=== PATIENT | male | born 1965 | race Caucasian/White ===

== ENCOUNTER 2017-09-28 19:09 | Emergency (ER) | payer OTHER, SELFPAY ==
[2017-09-28 19:09] VITALS: BP 179/95; PULSE 66; RESP 14; TEMP 36.9; O2SAT 99; BMI 25.7
[2017-09-28 19:20] VITALS: O2SAT 97
--- NOTE | 2017-09-28 19:21 | RAD_ITS ---
STUDY: X-RAY CHEST REASON FOR EXAM: Male, 52 years old. Chest pain TECHNIQUE: Frontal and lateral views of the chest COMPARISON: None. FINDINGS: The lungs are clear. There are no pleural effusions. There is no pneumothorax. The heart is normal in size. The visualized osseous structures are within normal limits. RAD/Chest PA and Lateral IMPRESSION: No acute thoracic pathology. Electronically Signed: [place], at 20:33 EDT Tel , Service support ,
--- NOTE | 2017-09-28 19:21 | EKG12_ITS ---
Test Reason : CP Blood Pressure : / mmHG Vent. Rate : 063 BPM Atrial Rate : 063 BPM P-R Int : 144 ms QRS Dur : 114 ms QT Int : 406 ms P-R-T Axes : 017 085 024 degrees QTc Int : 415 ms Normal sinus rhythm Normal ECG Confirmed by VIVIEN GREWAL, VIET ([id number]), science editor YADI SHIN ([id number] on 10/01/2017 3:55:47 PM Referred By: JERSON Confirmed By:VIET PUGA MD
--- NOTE | 2017-09-28 19:23 | ED.DCSUM_ITS ---
- ER Visit Summary Date of Service: 09/28/17 Chief Complaint: [] Chest pain History of Present Illness: The patient is a 52 M [] complaint of chest pain started 45 minutes ago. Was walking around his house when it came on. Continuous cramping sensation left parasternal. No radiation. Current severity is moderate. Took an aspirin and a dose of his metoprolol at home. No previous IL. Negative heart cath 6 years ago. He does have mitral valve prolapse. He had absolutely no blockages per patient. This was done at [facility]. Denies any cardiovascular PE or dissection risk factors. Physical Examination: [] Vital signs reviewed General: Well-nourished well-developed Head: Normocephalic atraumatic Eyes: Pupils equal round and reactive to light extraocular movements intact ENT: TMs clear no hemotympanum no trauma Neck: Nontender full range of motion Cardiovascular: Regular rate rhythm no murmurs normal S1-S2 Respiratory: No distress clear to auscultation bilaterally chest nontender Abdomen: Soft nontender nondistended normal bowel sounds no masses Back: Nontender no CVA tenderness Extremities: Nontender active range of motion ?4 extremities no trauma Skin: Normal color no trauma Neuro alert oriented cranial nerves II through XII intact normal strength sensation reflexes Test Results: [] Emergency Department Course and Treatment: [] EKG shows sinus at 63 without ischemia. Lab work chest x-ray obtained. Patient took aspirin at home. Given IV morphine. Reevaluation he feels much better resting comfortably. CBC normal. Chemistries normal except chloride 108 BUN 19 calcium 8.3 troponin less than 0.1. Chest x-ray shows nothing acute. Patient low risk heart score of 2 pertinent negative and a GODFREY risk score of 0 out of 7. I do not think this is cardiac. He stated he has been missing his metoprolol which could be exacerbating his mitral valve prolapse. This could be costochondritis. He had a negative heart cath completely 6 years ago [facility]. I feel he can follow- up. I do not think he has a PE or dissection. He has no tachycardia and no hypoxia. I did offer the patient a delta troponin and EKG and he does not think he needs this and refused. I think this is reasonable given his negative heart cath in the past Treatment Plan: [] Disposition: [] Impression: [] Chest pain This note was generated with Dragon dictation software. It may contain incorrect words, spelling, and punctuation that were not noted in review of the chart prior to signing ED Disposition - Plan for ED Patient: Disposition: Home or Assisted Living Chief Complaint: Chest Pain Instructions: ED Chest Pain NonCardiac Referrals: Ronny Lindsay MD [Primary Care Provider] -
[2017-09-28 19:35] LABS: Absolute Lymphocyte Count 2.75 X10^3/ul (0.83-4.51); Basophil# 0.02 X10^3/uL; Basophil% 0.3 % (0-1); Eosinophil# 0.14 X10^3/uL; Eosinophils% 2.1 % (0-5); Hematocrit 45.3 % (40-54); Hemoglobin 16.2 g/dl (13.0-16.5); Lymphocyte # 2.75 X10^3/ul (4.0); Lymphocyte % 41.8 % (19-41); Mean Corp Hgb Conc 35.8 g/gl (32-36); Mean Corpuscular Hgb 31.1 pg (27.0-32.0); Mean Corpuscular Volume 86.9 fL (80-94); Mean Platelet Vol. 10.3 fl (6.2-12.0); Monocyte# 0.64 X10^3/uL; Monocyte% 9.7 % (0-10); Neutrophil # 3.02 X10^3/uL (2.7-7.7); Neutrophil % 45.9 % (47-70); POSITIVE COUNT NO; POSITIVE DIFFERENTIAL NO; POSITIVE MORPHOLOGY NO; Platelet Count 233 K/mm3 (150-450); RBC Distribution Width SD 41.3 fl (35.1-43.9); Red Blood Count 5.21 M/mm3 (4.6-6.2); White Blood Count 6.6 K/mm3 (4.4-11.0)
[2017-09-28] MEDS: Morphine 4 MG/ML Syringe IV (19:41)
[2017-09-28 19:46] LABS: Anion Gap 5 (5-15); BUN 19 mg/dL (7-18); BUN/Creat Ratio 19.5 RATIO (10-20); Calcium,Total 8.3 mg/dL (8.5-10.1); Chloride 108 mmol/L (98-107); Creatinine, Serum 0.97 mg/dL (0.70-1.30); EST Glomerular Filtration Rate 86 mL/min (>60); Est Glom Filt Rate - Afr Amer 104 mL/min (>60); Estimated Creatinine Clearance 115.17 ml/min; Glucose 131 mg/dL (74-106); Potassium 4.3 mmol/L (3.5-5.1); Sodium Level 141 mmol/L (136-145)
[2017-09-28 20:03] VITALS: BP 151/82; PULSE 56; RESP 17; O2SAT 98
--- NOTE | 2017-09-28 20:06 | ED.DEP ---
ED Disposition - Plan for ED Patient: Disposition: Home or Assisted Living Chief Complaint: Chest Pain Instructions: ED Chest Pain NonCardiac Referrals: Ronny Lindsay MD [Primary Care Provider] -
[2017-09-28 20:21] VITALS: BP 135/78; PULSE 57; RESP 17; O2SAT 96
--- NOTE | 2017-09-28 20:21 | ED.RN ---
PT GIVEN WRITTEN AND VERBAL DISCHARGE INSTRUCTIONS AND VERBALIZES UNDERSTANDING. PT DENIES ANY FURTHER QUESTIONS. PER DR. ARTHUR, PT DOES NOT WANT TO STAY FOR TWO HOUR REDRAW. IV D/C AND COVERED WITH 2X2 GAUZE DRESSING AND PAPER TAPE. PT EDUCATED TO RETURN TO ED WITH ANY NEW OR WORSENED SX.
== END 2017-09-28 20:28 | disposition home or self-care (01) ==
PROVIDERS: Emergency Provider Emergency Medicine; Family Provider Family Medicine; PCP Family Medicine
DX: R07.9 Chest pain, unspecified (principal); I34.1 Nonrheumatic mitral (valve) prolapse
CPT/HCPCS: 71046; 80048; 84484; 85025; 93005; 96374; 99284; A4216